=== PATIENT | male | born 1965 | race Caucasian/White ===

== ENCOUNTER 2023-09-10 09:09 | Emergency (ER) | payer BC, SELFPAY ==
[2023-09-10 09:16] VITALS: BP 135/88
[2023-09-10 09:47] LABS: % Immature Granulocytes 0.2 % (0-0.5); % Lymphocytes 27.1 % (20.5-51.1); % Neutrophils 60.7 % (42.2-75.2); Absolute Basophils 0.1 10^3/uL (0-0.2); Absolute Eosinophils 0.2 10^3/uL (0-0.7); Absolute Lymphocytes 1.4 10^3/uL (1.2-3.4); Absolute Monocytes 0.4 10^3/uL (0.1-0.6); Hematocrit 41.5 % (39.0-52.0); Hemoglobin 14.3 g/dL (13.0-18.0); Mean Corp Hgb Conc. 34.5 g/dL (33.0-37.0); Mean Corpuscular Hgb 33.4 pg (27.0-31.0); Mean Platelet Volume 10.3 fL (7.4-10.4); Nucleated Red Blood Cells % 0 % (-); Platelet Count 240 10^3/uL (130-400); Red Blood Cell Count 4.28 10^6/uL (4.70-6.10); Red Cell Dist. Width 11.9 % (11.5-14.5)
[2023-09-10 09:57] LABS: ALT (SGPT) 30 U/L (0-50); AST (SGOT) 29 U/L (17-59); Albumin 4.9 g/dl (3.5-5.0); Alkaline Phosphatase 86 U/L (38-126); Blood Urea Nitrogen 11 mg/dl (9-20); Calcium 9.9 mg/dl (8.4-10.2); Carbon Dioxide 28 mmol/L (22-30); Chloride 99 mmol/L (98-107); Glucose 97 mg/dl (70-99); Potassium 4.5 mmol/L (3.5-5.1); Sodium 135 mmol/L (135-145); Total Bilirubin 1.1 mg/dl (0.2-1.3); Total Protein 7.8 g/dl (6.3-8.2); eGFR > 60.00
[2023-09-10 10:01] VITALS: BMI 26.9
[2023-09-10 10:09] LABS: Troponin I < 0.012 ng/ml
--- NOTE | 2023-09-10 10:19 | ED.GENMED ---
History of Present Illness
General
Chief Complaint: Dizziness
Source: patient and spouse
Exam Limitations: none
Time Seen by Provider: 09/10/23 09:50
Nursing documentation reviewed up to this point in time: agreed with
Travel History
Have you had any contact with someone who has COVID-19?: No
Do you have any symptoms of coronavirus? Fever > 100 degrees, chills, cough, shortness of breath, sore throat, loss of taste or smell, muscle aches, or headache?: No
History of Present Illness
History of Present Illness:
Patient is a 58-year-old male with history of CAD, [place] 24 with 1 stent, 2015 x 3 stents presents to the ER for evaluation. Patient reports 2 weeks ago he did a lot of strenuous exercising and swam more laps that he typically does. He had chest
discomfort that night. He had no discomfort while swimming. Since then he has had fatigued worse with exertion and feels dizzy lightheaded. He did see his food server last week for evaluation and was cleared however continues to have fatigue and
dizziness. He is a patient of Dr. Abreu.
Because of continued lightheaded and fatigue he presented to the ER. He describes his fatigue is worse with exertion but feels more tired than normal. He has not had any chest discomfort since the episode 2 weeks ago. He denies any associated
shortness of breath denies any lower extremity swelling.
Patient reports he had a echo as well as stress test a year ago which was unremarkable.
Review of Systems
Review of Systems
Allergies reviewed?: Yes
Other source history: family
All Other Systems: ROS reviewed and negative except as documented in HPI and ROS
Constitutional: Reports fatigue; Denies fever or chills
Respiratory: Reports no symptoms; Denies trouble breathing
Cardiac: Reports no symptoms
ABD/GI: Reports no symptoms
: Reports no symptoms
Musculoskeletal: Reports no symptoms
Skin: Reports no symptoms
Neurological: Reports dizzy
Hematologic/Lymphatic: Reports no symptoms
Psychiatric: Reports no symptoms
Phy Exam
General Physical Exam
General Presentation: well appearing
General age: appears stated age
General Skin: warm and dry
General Habitus: normal
General Mental: alert
General Hydration: appears well hydrated
Cardiovascular Exam
Cardiovascular Exam: regular rate/rhythm, no murmur and normal peripheral pulses
Pulmonary Exam
Pulmonary Exam: lungs clear and no respiratory distress
Gastrointestinal Exam
Gastrointestinal Exam: non tender and soft
Neurological Exam
Neurological Exam: alert and oriented x3
Musculoskeletal Exam
Musculoskeletal Exam: full ROM
Skin Exam
Skin Exam: normal color and warm/dry
Psychiatric Exam
Psychiatric Exam: normal mood/affect
Course
Orders/Labs/Results
Orders:
Orders
09/10/23 09:17
ECG [Electrocardiogram (*1)] Urgent
Reason for Study: Shortness of Breath
EKG- Treatment ONCE
09/10/23 09:30
Complete Blood Count/With Diff Urgent
Comprehensive Metabolic Panel Urgent
TSH Reflex To Free T4 Urgent
Comment: ADD ON
Troponin I Urgent
09/10/23 10:22
Chest [CR Chest - 2 Views ] Urgent
Comment:
Reason For Exam: cp
09/10/23 10:23
Add On- LAB Urgent
Tests Added?: tsh with reflexive t4
Abnormal Lab Results
09/10/23
09:30
RBC 4.28 L 10^6/uL
(4.70-6.10)
MCV 97.0 H fL
(80.0-94.0)
MCH 33.4 H pg
(27.0-31.0)
09/10/23 09:30
09/10/23 09:30
Vital Signs
Initial and Last Documented VS:
Initial Vital Signs
Temp Pulse Resp BP Pulse Ox
98.1 F 80 18 135/88 99
09/10/23 09:16 09/10/23 09:16 09/10/23 09:16 09/10/23 09:16 09/10/23 09:16
Last Documented Vital Signs
Temp Pulse Resp BP Pulse Ox
98.1 F 76 13 135/88 100
09/10/23 09:16 09/10/23 10:01 09/10/23 10:01 09/10/23 09:16 09/10/23 10:01
Video Production Assistant consulted with Physician
Video Production Assistant consulted with physician?: Yes
Name of Physician Consulted: Aniceto
MDM/Problems Addressed
Differential Diagnosis Includes:
Not limited to anemia dehydration electrolyte abnormality, unstable angina
MDM/Problems Addressed:
Patient is a 58-year-old history with CAD stents presents to the ER for evaluation of fatigue for the past 2 weeks. Patient was followed by cardiology, Dr. Stanley (non [place] associated ) and was cleared however continues to feel fatigued which is
what prompted him to come to the ER. He denies any associated shortness of breath. He presents awake alert no acute distress no acute findings on EKG normal cardiac troponin. He is not short of breath chest x-ray is neg. lungs cta. Pt is in
no acute distress discussed close outpatient follow-up with family doctor as well as cardiology for further workup for fatigue.
Chronic conditions affecting care:
CAD
*Radiology
Radiology exam reviewed: radiology read reviewed
*Pulse Oximetry
Patient hypoxic: no
*EKG
Interpreted by ED Provider?: Yes
Interpretation: normal
Comparison EKG: no changes
Heart Rate: 76
Rate: normal
Rhythm: sinus
Ischemia: non-specific ST changes
*Critical Care Note
Total Time (30-74mins, 75-104mins- exclusive of procedures): Not Applicable
ED Attending Note
-
Portions of this chart may have been created with voice recognition software.� Occasional wrong word or��sound alike� substitutions may have occurred due to the inherent limitations of voice recognition software.
Discharge Plan
Departure
Patient Disposition: Home (Routine Discharge)
Date of Disposition: 09/10/23
Time of Disposition: 12:15
Patient with high blood pressure during this ER visit?: Yes
Covid-19: Not Applicable
Discharge Problem:
Fatigue
Instructions: Fatigue (DC)
Prescriptions:
No Action
oxcarbazepine 300 MG tablet
300 mg PO BID
aspirin 81 MG tablet,delayed release (DR/EC)
81 mg PO DAILY
clopidogrel 75 MG tablet
75 mg PO DAILY Qty: 90 3RF
nitroglycerin 0.4 MG tablet, sublingual
0.4 mg sublingual [id number] PRN (Reason: chest pain) Qty: 25 2RF
atorvastatin 40 MG tablet
40 mg PO QPM Qty: 90 3RF
Referrals:
Meagan Beckwith MD [Family Provider] -
Activity Restrictions/Additional Instructions:
As discussed please follow-up with your family doctor as well as your food server for reevaluation of fatigue. You may need additional testing. Return if any worsening of symptoms
Interventions
Interventions:
*Risk Screen - Suicide Last Done: 09/10/23 10:04
*General Assessment Last Done: 09/10/23 10:04
*Neglect/Abuse Screening Last Done: 09/10/23 10:04
*ED COVID-19 Vaccine History Last Done: 09/10/23 09:16
ED- Neurological Assessment Last Done: 09/10/23 10:04
Discharge Date and Time
Print Language: COMORAN
[2023-09-10 12:02] LABS: TSH Reflex To Free T4 0.63 uIU/ml (0.47-4.68)
== END 2023-09-10 12:20 | disposition home or self-care (01) ==
LOC: EMR 09:09
PROVIDERS: EMERGENCY PHYSICIAN Emergency Medicine; FAMILY PHYSICIAN Family Medicine
DX: R53.83 Other fatigue (principal); R03.0 Elevated blood-pressure reading, without diagnosis of hypertension; I25.10 Atherosclerotic heart disease of native coronary artery without angina pectoris
CPT/HCPCS: 99285; 71046; 80053; 84443; 84484; 85025; 93005